=== PATIENT | male | born 1990 | race Caucasian/White ===

== ENCOUNTER 2017-06-24 10:46 | Emergency (ER) | payer SELFPAY ==
[~2017-06-24] VITALS: Ht 182.9 cm; Wt 113.0 kg
[~2017-06-24 10:46] MED LIST: IBUP800T23 PO
[2017-06-24 11:35] VITALS: BP 173/102; PULSE 87; RESP 18; TEMP 98.2; O2SAT 99
[2017-06-24] MEDS ORDERED: PENI500T PO (12:50)
[2017-06-24] MEDS ORDERED: CHLO.12%30 SWISH-SPIT (12:50)
--- NOTE | 2017-06-24 12:52 | PD ---
HPI . Dental abscess Chief Complaint: Oral / Dental Pain or Problem Time Seen by Provider: 12:05 Travel History International Travel<30 days: No Contact w/Intl Traveler<30days: No Traveled to known affect area: No History of Present Illness HPI 27-year-old male patient presents emergency department for evaluation of dentalgia and dental abscess. Patient has a history of dental problems due to decaying teeth. Patient states he first noticed the swelling/abscess yesterday. Patient denies any fevers, chills, malaise. Patient denies any major medical history. Patient denies any chest pain or shortness breath. Patient denies any tobacco or drug use. Occasional alcohol use. PFSH Past Medical History Medical History: Denies Significant Hx Cancer: No Diabetes: No Diminished Hearing: No Psychiatric: No Immunizations Current: Yes Seizures: No Thyroid Disease: No Ulcer: No Tetanus Vaccination: > 5 Years Influenza Vaccination: No ?: Not Past Surgical History Appendectomy: Yes Other Surgery: No Social History Alcohol Use: No Tobacco Use: No Substance Use: No Allergies-Medications (Allergen,Severity, Reaction): Coded Allergies: No Known Allergies (Unverified , 06/24/17) Reported Meds & Prescriptions Reported Meds & Active Scripts Active Chlorhexidine Gluconate (Mouth) Liq (Chlorhexidine Gluconate) 0.12% Soln 15 Ml SWISH-SPIT BID Penicillin V Potassium 500 Mg Tab 500 Mg PO Q6H 7 Days Review of Systems Except as stated in HPI: all other systems reviewed are Neg Physical Exam Narrative GENERAL: Well-nourished, well-developed 27-year-old male patient in no acute distress. Nontoxic appearing. SKIN: Focused skin assessment warm/dry. HEAD: Normocephalic. Atraumatic. EYES: No scleral icterus. No injection or drainage. MOUTH: Gingival erythema with area of fluctuation noted below tooth #19. Tooth #19 obviously decaying. NECK: Supple, trachea midline. No JVD or lymphadenopathy. CARDIOVASCULAR: Regular rate and rhythm without murmurs, gallops, or rubs. RESPIRATORY: Breath sounds equal bilaterally. No accessory muscle use. GASTROINTESTINAL: Abdomen soft, non-tender, nondistended. MUSCULOSKELETAL: No cyanosis, or edema. BACK: Nontender without obvious deformity. No CVA tenderness. Data Data Last Documented VS Vital Signs Date Time Temp Pulse Resp B/P (MAP) Pulse Ox O2 Delivery O2 Flow Rate FiO2 06/24/17 11:35 98.2 87 18 173/102 (125) 99 Orders Orders Ed Discharge Order (06/24/17 12:52) MDM Medical Decision Making Medical Screen Exam Complete: Yes Emergency Medical Condition: Yes Differential Diagnosis Differential diagnoses include but not limited to dental abscess, gingivitis, cavities, pulpitis Narrative Course 27-year-old male patient presents emergency department for evaluation of an abscess associated with tooth #19. Patient restart his abscess yesterday. Patient denies any fevers, chills, malaise. I&D was going to be performed. The patient is very anxious about needles. When I went to go out of the supplies the patient manipulated the abscess and opened it before I returned with the supplies. The abscess was opened and draining when I returned. The patient was relieved he was not going to have an I&D to the abscess. Patient will be discharged home with antibiotics and instructions to follow up with the dentist. Diagnosis Primary Impression: Abscess, dental Referrals: Dentist Patient Instructions: Dental Abscess (ED), General Instructions Additional Instructions: Please return to emergency department if your symptoms return or worsen. Follow up with your primary care provider. Take medications as prescribed. May use [id number] ibuprofen and/or Tylenol as needed for pain or fevers. Follow-up with a dentist. Clove oil applied locally may help with pain and inflammation. Med/Other Pt SpecificInfo: Prescription(s) given Scripts Chlorhexidine Gluconate (Mouth) Liq (Chlorhexidine Gluconate (Mouth) Liq) 0.12% Soln 15 ML SWISH-SPIT BID, #473 ML 0 Refills Prov: Gretchen Hobbs 06/24/17 Penicillin V Potassium (Penicillin V Potassium) 500 Mg Tab 500 MG PO Q6H for Infection for 7 Days, #28 TAB 0 Refills Prov: Gretchen Hobbs 06/24/17 Disposition: 01 DISCHARGE HOME Condition: Stable Gretchen Hobbs Jun 24, 2017 12:52
== END 2017-06-24 12:59 | disposition home or self-care (01) ==
LOC: PHEFT 10:46
DX: K04.7 Periapical abscess without sinus (principal)
CPT/HCPCS: 99284